=== PATIENT | female | born 1950 | race Caucasian/White ===

== ENCOUNTER → 2018-02-09 | Outpatient (CLI) | payer BC, OTHER ==
[~2018-02-09] MED LIST: BENADRYL25 MG PO; CARISOPRODOL 3350 MG PO; DOXEPIN 10 MG C10 MG PO; LEVOTHYROXIN0.075 MG; MOBIC7.5 M1 PO; NORCO 5-325 TA1 EACH PO; TESSALON PERLE100 MG PO; VALTREX1000 MG PO; ZETIA10 MG PO; ZOFRAN4 MG PO
--- NOTE | ~2018-02-09 | EKG ---
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
== END ==
LOC: CV 17:03 → EDBD 17:03
DX: Z01.818 Encounter for other preprocedural examination (principal); I25.2 Old myocardial infarction